=== PATIENT | male | born 1975 | race Caucasian/White ===

== ENCOUNTER 2018-02-11 06:12 | Inpatient (IN) ==
--- NOTE | 2018-02-10 22:09 | Discharge Summary ---
Orders not resulted at time of discharge: Pending orders 02/11/18 00:01 XR shoulder complete RT [XR] Routine H/H [Hemoglobin and Hematocrit] [HEME] Routine Date of Encounter: 02/13/18 Time of Encounter: 14:55 - Discharge Diagnosis (1) Status post reverse total arthroplasty of right shoulder Priority: Primary Status: Acute Comments: Opsite dressing, leave intact until first post-operative visit. Zipline in place, plan to remove at post-operative day #14-16. If dressing becomes >50% saturated, contact office, remove dressing and place appropriate dressing in its place. Do not allow for dressing to get wet. Shoulder Precautions x 6 weeks. Apply cold therapy wrap 3-6x/day for 20 minutes at a time. Encourage ambulation throughout the day. Use Incentive spirometer 10x/hour. Elevate affected extremity above heart as tolerated. NWB to affected upper extremity x 6 weeks. Will remove brace at first post-operative appointment. OK to remove during PT/OT and Home exercises. Remove ABD pillow at Postoperative day #1 (2) Rotator cuff arthropathy of right shoulder Priority: Primary Status: Acute (3) Factor V Leiden Priority: Secondary Status: Chronic (4) Chronic headaches Priority: Secondary Status: Chronic Qualifiers: Headache type: unspecified Intractability: not intractable Qualified Code(s): R51 - Headache (5) Syncopal episodes Priority: Secondary Status: Chronic Qualifiers: Syncope type: unspecified Qualified Code(s): R55 - Syncope and collapse - Hospital Course Hospital course: Mr. Hinds is a 42 year old male, Right TSR-r 02/11 A&O x 3 Afebrile, vital signs stable. Vital Signs Temp Pulse Resp BP Pulse Ox 02/13/18 07:03 98.7 F 58 14 130/82 96 02/13/18 03:26 98.5 F 58 16 156/90 95 02/13/18 01:38 98.9 F 61 16 152/84 96 02/12/18 23:29 99.1 F 115 15 146/82 93 02/12/18 19:17 98.9 F 66 15 153/80 93 Intake and Output 02/12/18 02/13/18 02/13/18 23:59 07:59 15:59 Intake Total 100 / 100 300 / 300 360 / 360 Output Total 400 / 400 Balance -300 / -300 300 / 300 360 / 360 Intake: IV Fluids 100 / 100 Ofirmev 1,000 mg/100 ml 1,000 100 / 100 mg In 100 ml @ 400 mls/hr IVPB ONCE ONE Rx#:[id number] Oral 300 / 300 360 / 360 Output: Urine 400 / 400 Other: Meal Breakfast Percent of Meal Consumed 100% Weight 126.2 kg Patient Weight 02/13/18 23:59 Weight 126.2 kg Labs reviewed. H/H - stable, asymptomatic Short CBC 02/13/18 Range/Units 05:35 Hgb 13.1 (12.9-16.9) g/dL Hct 38.8 (37.5-50.1) % BMP 02/13/18 Range/Units 05:35 Sodium 138 (136-145) mEq/L Potassium 3.8 (3.5-5.1) mEq/L Chloride 105 (98-107) mEq/L Carbon Dioxide 26 (23-29) mEq/L BUN 8 (6-20) mg/dL Creatinine 0.52 L (0.70-1.30) mg/dL Glucose 118 H (70-105) mg/dL Calcium 9.2 (8.6-10.3) mg/dL Pain control: adequate Flexeril added 10mg BID, Lido patch added. Started Tylenol w codeine for breakthrough Participating in PT. All questions and concerns addressed. Educated on use of incentive spirometer. Encouraged ambulation and proper hydration. Patient educated on post-operative restrictions and post-operative care. Assessment and plan: Continue with postoperative care Discharge plan: Home, discharge 02/13 with OP Flexeril 10mg BID sent - Time Spent with Patient Total time spent providing and/or coordinating discharge services: - Discharge Medications Home Medications: Divalproex Sodium [Depakote] 250 mg PO HS 02/11/18 [History] Flecainide 100 mg PO Q12HR 02/11/18 [History] Naratriptan HCl [Amerge] 2.5 mg PO DAILY PRN 02/11/18 [History] Prochlorperazine Maleate [Compazine] 10 mg PO Q8HR PRN 02/11/18 [History] Testosterone 2 pump TD DAILY 02/11/18 [History] Allergies/Adverse Reactions: Allergy/AdvReac Type Severity Reaction Status Date / Time acetaminophen [From Percocet] Allergy Anxiety Verified 02/11/18 15:58 fentanyl Allergy See Verified 02/11/18 15:58 Comments Oxycodone [From Percocet] Allergy Anxiety Verified 02/11/18 15:58 sumatriptan [From Imitrex] Allergy See Verified 02/11/18 15:58 Comments morphine AdvReac See Verified 02/11/18 07:25 Comments prednisone AdvReac Anxiety Verified 02/11/18 07:25 Date of admission: 02/11/18 Primary care physician: PCP NONE Anticipated date of discharge: 02/13/18 - Patient Status Disposition: Home, Self-Care Condition: Good Functional capacity at discharge: independent ambulation Overall status at discharge: patient is progressing back to baseline - Discharge Instructions Follow Up With: Lc Carrion MD [Partnered Physician] - 03/11/18 3:50 pm Alanis Blount PAC [Physician [employer] Former] - 02/19/18 8:45 am (ALSO, 02/27/17 @ 8:15AM) NONE,PCP [Primary Care Provider] - Additional Instructions: Discharge Instructions: Total Shoulder Please call [facility] ([phone]), your Primary Care Physician, or report to the Emergency Room if you have any of the following symptoms: Nausea, vomiting, fever greater that 101.5, swelling, chest pain, shortness of breath, increased pain/redness/drainage/odor for your incision site, numbness/tingling, or any other concerning symptoms. ACTIVITY: Always keep your arm in the sling. Do not raise your arm away from your body. Do not use your arm to help with getting in or out of bed. No we ight bearing permitted. Only perform those exercises given to you by your therapist. Incentive Spirometer 10 times an hour. MEDICATIONS: Upon discharge resume your home medications. Take all the medications as prescribed. Take a stool softener if taking narcotic pain medications. Stool softeners are only effective if you drink enough fluids. Drink 6-8 glass of water or fluids a day, unless this is not allowed for another health problem. Despite using stool softeners, if you haven't had a bowel movement in 3 days, please switch to a gentle laxative. Gentle laxatives are sold over the counter. You should have a bowel movement within 24 hours, if not call the office. You will be discharged from the hospital with a prescription for pain medication. You are encouraged to decrease the use of narcotic pain medication as tolerated. Should you require a refill, please call the office. [facility] prescribes narcotic pain medication for only 4-6 weeks after surgery. If you require pain medication beyond this time period, you may be referred to your Primary Care Physician or to the Pain Clinic for further evaluation. Plan ahead for refills on pain medication as many narcotics either need to be picked up at the office or mailed. It is best to call 48-72 hours in advance of needing a prescription refill so you don't run out of medication. To help control the post-operative pain, you may take NSAIDs (Aleve,Advil, Motrin, Ibuprofen, Naprosyn) or Tylenol as prescribed on the bottle in addition to the pain medication. WOUND CARE: Leave the dressing on for 7-10 days. You may change the dressing if it becomes saturated greater than 50%. Do not get the dressing wet at anytime. Wash your hands with antibacterial soap, rinse and dry prior to any wound care. If you have red the visiting nurse or rehab facility can remove the stapes 10-14 days after surgery and place steri-strips across the wound. Leave the steri-strips in place until they fall off on their own. You may let water from the shower run on top of the steri-strips. If you do not have a visiting nurse or rehab facility, you will need to return to the office at 10-14 days for the red to be removed. If you have itching or redness around the dressing call the office. FOLLOW-UP: Please follow up with your surgeon in the orthopedic clinic, as scheduled
[2018-02-11] MEDS ORDERED: Ringers Solution, Lactated 1,000 ML IVC SCH ×3 (06:30→09:45)
[2018-02-11] MEDS ORDERED: CeFAZolin Syr 3,000MG/30 ML 3,000 MG/30 ML SYRINGE IVPB ONE (06:30)
--- NOTE | 2018-02-11 06:54 | History & Physical Report ---
Date of Encounter: 02/11/18 Time of Encounter: 06:53 24 Hour HP Update - Instructions Instructions: If the History and Physical is less than 30 days old and was completed prior to A.M. admission and or procedure and has NOT been updated on calendar day of procedure please complete this update prior to performing procedure. - Update Patient reports changes in Medical Condition: No Changes in examination, assessment, or condition: No Changes in Medication: No Preop tests/diagnostics Reviewed: Yes Surgery Remains Indicated: Yes Consent for Planned Operative Procedure(s) Verified: Yes - Pre-Operative Checklist Preoperative Checklist Indicated: No Prophylactic Antibiotic Ordered: Yes Is VTE Prophylaxis Indicated?: Yes
[2018-02-11] MEDS ORDERED: LIDOCAINE 1% PF 2 ML AMPUL ONE (07:04)
[2018-02-11] MEDS ORDERED: Ethanol\\Acetic Acid\\Na Ace\\Ben 1,000 ML IRRIG.SOLN IR ONE (07:05)
--- NOTE | 2018-02-11 07:06 | Anesthesia Evaluation PreOp ---
Date of Encounter: 02/11/18 Time of Encounter: 07:04 - Past History Planned Operation: Right TSR, reverse ball and socket Cardiac History: Denies any Significant Hx Pulmonary History: Denies Any Significant HX DIET CONSULTANT History: Other (neurocardiogenic syncope) Other Medical History: Denies Any Significant HX, Other (factor V leiden) Anesthesia History: No Prior Anesthetic Complications, Past Anesthesia (L knee x2, multiple hand surgeries, ykleigh, T&A, L elbow ulnar nn decompressionRight RCR) Alcohol Use: none Drug use: none Medications and Allergies Flecainide 100 mg PO Q12HR 03/26/16 [History] Naratriptan HCl [Amerge] 2.5 mg PO BID PRN 03/26/16 [History] Rizatriptan Benzoate [Maxalt] 5 mg PO DAILY PRN 03/26/16 [History] Butalbital/Aspirin/Caffeine [Fiorinal 50-325-40 mg Capsule] 1 tab PO Q12H PRN 08/08/17 [History] Ketorolac Tromethamine 10 mg PO Q6H PRN 08/08/17 [History] Butler 5-325 mg 5 - 325 mg PO Q6-8H PRN 08/08/17 [History] Prochlorperazine Maleate 10 mg PO Q8H PRN 08/08/17 [History] Propranolol HCl 80 mg PO DAILY 08/08/17 [History] HYDROcodone/Acet 5/325 mg [Butler 5-325 mg] 1 tab PO Q6H PRN 7 Days #28 tab 02/10/18 [Rx] Allergy/AdvReac Type Severity Reaction Status Date / Time acetaminophen [From Percocet] Allergy Anxiety Unverified 01/23/18 22:57 fentanyl Allergy See Unverified 01/23/18 22:59 Comments Oxycodone [From Percocet] Allergy Anxiety Unverified 01/23/18 22:57 sumatriptan [From Imitrex] Allergy See Unverified 01/23/18 22:58 Comments morphine AdvReac See Verified 02/11/18 07:01 Comments prednisone AdvReac Anxiety Verified 03/26/16 12:23 - Meds/Allergy Pre-op Review Medications Reviewed: Yes Allergies Reviewed: Yes Beta Blockers on Current Med List: No Anesthesia Results - Labs Laboratory Tests 01/20/18 01/20/18 01/20/18 08:20 08:20 08:20 WBC 5.7 RBC 4.92 Hgb 15.4 Plt Count 213 PT 11.9 INR 1.1 APTT 42.0 H Sodium 139 Potassium 4.1 Chloride 108 H Carbon Dioxide 23 BUN 20 Creatinine 0.72 - Imaging EKG: report reviewed (SINUS BRADYCARDIA POSSIBLE RIGHT VENTRICULAR CONDUCTION DELAY [RSR (QR) IN V1/V2] MODERATE T-WAVE ABNORMALITY, CONSIDER ANTERIOR ISCHEMIA [-0.1+ mV T WAVE IN V3/V4] Electronically Signed On 08-11-2017 16:51:52 EDT by Minh Castillo) Anesthesia Exam O2 Sat Height 1.91 m Weight 125.645 kg O2 Sat by Pulse Oximetry 97 Vital Signs Temp Pulse Resp BP Pulse Ox 98.4 F 71 18 117/80 97 02/11/18 06:29 02/11/18 06:29 02/11/18 06:29 02/11/18 06:29 02/11/18 06:29 Weight: 125kg NPO (# of Hours): >8 Pain Scale: 0 Pain Scale Used: Numeric (1 - 10) - HEENT Pupil (Motor): Pupils equal, EOMI Mallampati: III Teeth: Missing Denture Type: Upper: Complete Oral Opening: Greater than 3 - DIET CONSULTANT LOC: Oriented DIET CONSULTANT Motor: Normal RUE, Normal LUE, Normal RLE, Normal LLE, Normal Face DIET CONSULTANT Sensory: Normal: RUE, LUE, RLE, LLE, Face - Cardiac Rhythm: Regular - Pulmonary Breath Sounds: bilateral Clear Respiratory Effort: Symmetrical Anesthesia Assess/Plan ASA Score: 2 Level of consciousness: Cooperative, Oriented Anesthetic Plan: General, Regional Nerve Block Regional Nerve Block Plan: Supraclavicular (Right) Monitoring Plan: Standard Monitors Recovery Plan: PACU
[2018-02-11] MEDS ORDERED: Ondansetron 4 MG/2 ML VIAL ONE (07:11)
[2018-02-11] MEDS ORDERED: Lidocaine -MPF 4% 5 ML AMPUL ONE (07:11)
[2018-02-11] MEDS ORDERED: *HR* Succinylcholine 200 MG/10 ML VIAL IVP ONE (07:11)
[2018-02-11] MEDS ORDERED: *HR* Propofol 200 MG/20 ML VIAL IVP ONE (07:11)
[2018-02-11] MEDS ORDERED: *HR* Midazolam HCl 2 MG/2 ML VIAL ONE (07:11)
[2018-02-11] MEDS ORDERED: Dexamethasone 4 MG/ML VIAL ONE (07:11)
[2018-02-11] MEDS ORDERED: *HR* FentaNYL (PF) 100 MCG/2 ML VIAL ONE (07:11)
[2018-02-11] MEDS ORDERED: Lidocaine -MPF 2% 2 ML VIAL ONE ×2 (07:11→07:14)
[2018-02-11] MEDS ORDERED: Tranexamic Acid 1,000 MG/10 ML VIAL ONE (07:15)
[2018-02-11] MEDS ORDERED: *HR* HYDROmorphone (PF) 1 MG/ML SYRINGE IVP PRN (07:17)
[2018-02-11] MEDS ORDERED: *HR* Meperidine 25 MG/ML SYRINGE IVP PRN (07:17)
[2018-02-11] MEDS ORDERED: Ondansetron 4 MG/2 ML VIAL IVP ONE (07:17)
[2018-02-11] MEDS ORDERED: *HR* Promethazine 25 MG/ML VIAL IVP PRN (07:17)
[2018-02-11] MEDS ORDERED: Bupivacaine/Clonidine Syringe 1 EACH SYRINGE ONE (07:20)
[2018-02-11] MEDS ORDERED: ROPIVACAINE HCL/PF 0.5% 30 ML VIAL ONE (07:20)
--- NOTE | 2018-02-11 07:59 | Anesthesia Procedures ---
Date of Encounter: 02/11/18 Time of Encounter: 07:35 Procedures: Anesthesia - Nerve Block Procedure Date: 02/11/18 Time: 07:35 Allergies/Adv Reactions: MULTIPLE SEE CHART Pre-op Diagnosis: RIGHT TOTAL SHOULDER ARTHRITIS Surgical Procedure: RIGHT TOTAL SHOULDER Checklist: Correct Patient Identifier, Correct procedure Correct side: Right Blood Thinner: No Monitor Applied: EKG, BP, Pulse Oximetry Supplemental Oxygen via Nasal Cannula (L/min): 2 Sedation: Versed (mg): 2 Sedation: Fentanyl (mcg): 100 (STATED FENTANYL DOESNT WORK -NOT TRUE ALLERGY ) Indication: Post Op Analgesia Pre-op Neuro Deficits: No (HAS NO DIGITS TO RIGHT SIDE ) Block Type: Supraclavicular (ICB/SCP) Catheter placed: No Sterile Technique: Yes Ultrasound used: Yes Anatomy identified: Yes Visual spread of Local: Yes Neuro Stimulation: Yes Nerve Stimulator Range: 0.2 - 0.4 mA Blood on Needle Aspiration: No Smooth Injection of Local: Yes Pain with Injection of Local: No Prep: Chlorhexadine Needle: 22 x 50 mm Stimuplex Local: 0.25% Bupivicaine w/Clonidine 20 mcg/cc (ICB/SCP), Ropivacaine (0.5% WITH 8MG DECADRON -SC BLOCK ) Volume (cc): 50 Number of Attempts: 1 Complications: None/effective block Vitals: Vital Signs - Last 8 Hours Temp Pulse Resp BP Pulse Ox 02/11/18 07:39 62 18 131/85 99 02/11/18 07:28 63 18 131/78 100 02/11/18 06:29 98.4 F 71 18 117/80 97 Intake and Output 02/10/18 02/11/18 02/11/18 23:59 07:59 15:59 Other: Weight 125.645 kg Patient Weight 02/11/18 23:59 Weight 125.645 kg
--- NOTE | 2018-02-11 08:44 | Orthopedic Operative Note ---
Date of procedure: 02/11/18 Pre-op diagnosis: Right shoulder cuff tear arthropathy Post-op diagnosis: same Procedure: Procedure: Total Shoulder Replacment Reverse, right Estimated blood loss: 50 cc Hardware: Metal and polyethylene replacement: Arthrex 28, +4 , 30 mm screw glenoid baseplate, 4 locking 5.5 screw, 42+4 glenosphere, 12 apex humeral stem, poly insert 6 Exam Under anesthesia: Full motion no instability Procedural Notes: The patient with a irreparable re-tear supraspinatus Operative procedure: The patient was brought to the operating room and placed on the operating room table. After general anesthesia was administered the operative shoulder was examined. Findings were noted. The patient was placed in the modified beachchair position. All pressure points were padded appropriately. And the head was stabilized in the neutral position. The operative extremity was prepped and draped in the sterile surgical fashion. The patient received IV antibiotics prior to skin incision. A standard deltopectoral approach was made to the operative shoulder. Incision was made to the skin and subcutaneous tissue,hemo stasis was obtained with Bovie cautery. Using careful blunt dissection the cephalic vein was identified and mobilized medially. The deltopectoral interval was developed and the clavipectoral fascia was incised. The subscap was released off the lesser tuberosity and tagged with #2 FiberWire suture subscap was irreparable. The humerus was dislocated patient noted to have irreparable re-tear supraspinatus tendon, and the humeral cut was made along the anatomic neck. Anterior and posterior Bankart retractors were placed to expose the glenoid. The glenoid guide was seated and the centering hole was made. It was reamed with the appropriate reamer. The 28, +4, 30 mm screw base plate was seated and secured with 4 locking 5.5 screw. The baseplate was irrigated and dried and the 42+4 Glenosphere was seated and secured with the Pemberton taper. The Pemberton taper was tested and found to be secure, glenosphere fixation was secondarily secured with the central screw. The humerus was redislocated and prepared with the diaphyseal reamers, followed by a broaching process up to the appropriate size of 12 apex in the patient's anatomic version. The metaphyseal reamer was then utilized. Trial reduction found the shoulder to be relocatable. Trial components were removed and the 12apex stem was impacted in place in the patient's anatomic version. Trial reduction found the shoulder to be relocatable and stable with the appropriate 6 Darshana Trial component was removed and the real implant was seated and secured the shoulder was reduced. The shoulder had excellent motion and excellent stability and no evidence of dislocation. The deep tissue was irrigated with pulse irrigation. The PA close the shoulder. The deltopectoral interval was closed with a running #1 PDS suture, subcutaneous tissue was irrigated and closed with 0 PDS suture, the skin was closed with Dermabond. The patient was placed in a sterile dressing, abduction brace and extubated. The patient was then transferred to the recovery room in stable condition. Anesthesia: GETA Surgeon: Lc Carrion Was there an assistant professor of english present: No Estimated blood loss (cc): 50 Condition: stable Disposition: PACU
[2018-02-11] MEDS ORDERED: *HR* Morphine 10 MG/ML VIAL ONE (08:46)
--- NOTE | 2018-02-11 09:39 | Anesthesia Evaluation Post Op ---
Date of Encounter: 02/11/18 Time of Encounter: 09:38 - Vital Signs Vital Signs: Vital Signs/O2 Sat, Most Current Temp Pulse Resp BP Pulse Ox 97.7 F 68 15 117/73 93 02/11/18 09:24 02/11/18 09:24 02/11/18 09:24 02/11/18 09:24 02/11/18 09:24 - Lungs Lungs: Clear Ascult./Percussion - Airway Airway: Non-obstructed - Cardiovascular Regular Rate - Mental Status Mental Status: Alert & Oriented, Answers Appropriately - Pain Pain Scale: 0 Pain Scale used: Numeric (1 - 10) - Nausea Vomiting Nausea Vomiting: Not Present - Hydration Hydration: Ice chips - Discharge PostOp Status: Transfer Patient to floor
[2018-02-11 09:44] LABS: Hematocrit 40.7 % (37.5-50.1); Hemoglobin 13.4 g/dL (12.9-16.9)
[2018-02-11] MEDS ORDERED: Sennosides 8.6 MG TABLET PO PRN (09:45)
[2018-02-11] MEDS ORDERED: Naratriptan Hcl [Amerge] 2.5 MG PO PRN (09:45)
[2018-02-11] MEDS ORDERED: Acetaminophen 325 MG TABLET PO PRN (09:45)
[2018-02-11] MEDS ORDERED: Naloxone 0.4 MG/ML INJ IVP PRN (09:45)
[2018-02-11] MEDS ORDERED: Ondansetron 4 MG/2 ML VIAL IVP PRN (09:45)
[2018-02-11] MEDS ORDERED: MOM Conc 10 ML UD.LIQ PO PRN (09:45)
[2018-02-11] MEDS ORDERED: Temazepam 15 MG CAPSULE PO PRN (09:45)
[2018-02-11] MEDS: *HR* HYDROcodone/Acet 5/325 mg TABLET PO PRN ×2 (11:05→16:12)
[2018-02-11] MEDS: TESTOSTERONE PUMP TP SCH (11:08)
[2018-02-11] MEDS: *HR* Enoxaparin 30 MG/0.3 ML SYRINGE SQ SCH (16:07)
[2018-02-11] MEDS: ceFAZolin 3,000 MG in 0.9 % Sodium Chloride 100 ML IVPB SCH (16:08)
[2018-02-11] MEDS ORDERED: *HR* Enoxaparin 30 MG/0.3 ML SYRINGE SQ SCH (18:00)
[2018-02-11] MEDS: Divalproex (12 HR) 250 MG TABLET PO SCH (20:23)
[2018-02-12] MEDS: ceFAZolin 3,000 MG in 0.9 % Sodium Chloride 100 ML IVPB SCH (00:03)
[2018-02-12 05:15] LABS: Hematocrit 37.5 % (37.5-50.1); Hemoglobin 12.6 g/dL (12.9-16.9)
[2018-02-12 05:28] LABS: BUN/Creatinine Ratio 20 (6-26); Blood Urea Nitrogen 12 mg/dL (6-20); Calcium 8.7 mg/dL (8.6-10.3); Carbon Dioxide 24 mEq/L (23-29); Chloride 106 mEq/L (98-107); Glucose 137 mg/dL (70-105); Osmolality,Calculated 284 (280-300); Potassium 3.8 mEq/L (3.5-5.1); Sodium 136 mEq/L (136-145); eGFR For Non-African Americans > 60 (> 60)
--- NOTE | 2018-02-12 06:47 | Orthopedics Progress Note ---
Date of Encounter: 02/12/18 Time of Encounter: 06:47 Subjective Interval history: Patient was seen this morning doing well without complaints. Afebrile vital signs stable. Operative extremity: Neurovascularly intact Dressing clean dry and intact Calves nontender Assessment and plan: Continue with postoperative care Discharged today Objective Vital signs: Vital Signs Temp Pulse Resp BP Pulse Ox 02/12/18 04:17 97.9 F 67 16 111/65 95 02/12/18 01:31 97.9 F 66 16 107/64 95 02/11/18 20:21 97.9 F 57 14 105/61 94 02/11/18 14:22 98.8 F 78 16 126/68 96 02/11/18 13:24 71 16 107/57 95 02/11/18 12:31 97.7 F 70 16 111/65 02/11/18 11:16 69 15 129/88 96 02/11/18 10:45 67 14 111/68 93 02/11/18 10:15 97.9 F 70 14 114/72 94 02/11/18 09:45 97.9 F 68 14 117/71 94 02/11/18 09:34 97.7 F 66 16 117/74 93 02/11/18 09:24 97.7 F 68 15 117/73 93 02/11/18 09:14 80 16 127/85 94 02/11/18 09:04 80 16 135/85 96 02/11/18 08:54 98.0 F 56 16 98/59 96 02/11/18 07:39 62 18 131/85 99 02/11/18 07:28 63 18 131/78 100 Intake and Output 02/11/18 02/11/18 02/12/18 15:59 23:59 07:59 Intake Total 150 / 150 100 / 100 Output Total 950 / 950 0 / 0 Balance -950 / -950 150 / 150 100 / 100 Intake: IV Fluids 100 / 100 Ancef 3,000 MG In 0.9 % Sodium 100 / 100 Chloride 100 ML @ 200 mls/hr IVPB Q8HR [facility] Rx#:[id number] Oral 50 / 50 100 / 100 Output: Urine 900 / 900 0 / 0 Estimated Blood Loss 50 / 50 Other: # Voids 1 1 Weight 125.9 kg Patient Weight 02/12/18 23:59 Weight 125.9 kg - Labs CBC & BMP: 02/12/18 04:33 02/12/18 04:33 Labs: Abnormal lab results Hgb 12.6 g/dL (12.9-16.9) L 02/12/18 04:33 Creatinine 0.61 mg/dL (0.70-1.30) L 02/12/18 04:33 Glucose 137 mg/dL (70-105) H 02/12/18 04:33 - VTE Documentation of Mechanical Device: Venous foot pump, device Consult Discharge Plan - Plan Referrals: NONE,PCP [Primary Care Provider] -
[2018-02-12] MEDS: *HR* Enoxaparin 30 MG/0.3 ML SYRINGE SQ SCH ×2 (06:58→16:44)
[2018-02-12] MEDS: TESTOSTERONE PUMP TP SCH (08:45)
[2018-02-12] MEDS: *HR* HYDROcodone/Acet 5/325 mg TABLET PO PRN ×2 (08:49→16:54)
[2018-02-12] MEDS: *HR* HYDROcodone/Acet 10/325 mg TABLET PO PRN ×2 (12:23→22:17)
[2018-02-12] MEDS ORDERED: Acetaminophen IV 1,000 MG/100 ML INFUS..BTL IVPB ONE (15:39)
--- NOTE | 2018-02-12 16:51 | Event Note ---
Date of Encounter: 02/12/18 Time of Encounter: 16:50 PCR - POD# Right TSR-r 02/11 Patient seen at bedside, without complaints. A&O x 3 Afebrile, vital signs stable. Labs reviewed. H/H - stable, asymptomatic Pain control: adequate Flexeril added 10mg BID, Lido patch added. Started Tylenol w codeine for breakthrough Participating in PT. All questions and concerns addressed. Educated on use of incentive spirometer. Encouraged ambulation and proper hydration. Patient educated on post-operative restrictions and post-operative care. Assessment and plan: Continue with postoperative care Discharge plan: Home, discharge 02/13 with OP
[2018-02-12] MEDS ORDERED: *HR* Acetaminophen w/Cod 300-30 mg 1 TAB TABLET PO PRN (17:26)
[2018-02-12] MEDS: Divalproex (12 HR) 250 MG TABLET PO SCH (22:17)
[2018-02-13] MEDS: *HR* HYDROcodone/Acet 10/325 mg TABLET PO PRN ×2 (04:15→10:30)
[2018-02-13 06:01] LABS: Hematocrit 38.8 % (37.5-50.1); Hemoglobin 13.1 g/dL (12.9-16.9)
[2018-02-13 06:22] LABS: BUN/Creatinine Ratio 15 (6-26); Blood Urea Nitrogen 8 mg/dL (6-20); Calcium 9.2 mg/dL (8.6-10.3); Carbon Dioxide 26 mEq/L (23-29); Chloride 105 mEq/L (98-107); Glucose 118 mg/dL (70-105); Osmolality,Calculated 285 (280-300); Potassium 3.8 mEq/L (3.5-5.1); Sodium 138 mEq/L (136-145); eGFR For Non-African Americans > 60 (> 60)
[2018-02-13] MEDS: *HR* Enoxaparin 30 MG/0.3 ML SYRINGE SQ SCH (06:37)
--- NOTE | 2018-02-13 06:47 | Orthopedics Progress Note ---
Date of Encounter: 02/13/18 Time of Encounter: 06:46 Subjective Interval history: Patient was seen this morning doing well without complaints. Afebrile vital signs stable. Operative extremity: Neurovascularly intact Dressing clean dry and intact Calves nontender Assessment and plan: Continue with postoperative care Plan for discharge today Objective Vital signs: Vital Signs Temp Pulse Resp BP Pulse Ox 02/13/18 03:26 98.5 F 58 16 156/90 95 02/13/18 01:38 98.9 F 61 16 152/84 96 02/12/18 23:29 99.1 F 115 15 146/82 93 02/12/18 19:17 98.9 F 66 15 153/80 93 02/12/18 14:58 99.0 F 85 18 142/82 95 02/12/18 11:05 98.8 F 63 18 146/82 96 02/12/18 06:55 97.4 F L 59 18 123/77 96 Intake and Output 02/12/18 02/12/18 02/13/18 15:59 23:59 07:59 Intake Total 1430 / 1430 100 / 100 Output Total 400 / 400 Balance 1430 / 1430 -300 / -300 Intake: IV Fluids 1130 / 1130 100 / 100 Ofirmev 1,000 mg/100 ml 1,000 100 / 100 mg In 100 ml @ 400 mls/hr IVPB ONCE ONE Rx#:[id number] Ancef 3,000 MG In 0.9 % Sodium 100 / 100 Chloride 100 ML @ 200 mls/hr IVPB Q8HR SHAYNE Rx#:[id number] Oral 300 / 300 Output: Urine 400 / 400 Other: Meal Breakfast Percent of Meal Consumed 75% # Voids 8 Weight 126.2 kg Patient Weight 02/13/18 23:59 Weight 126.2 kg - Labs CBC & BMP: 02/13/18 05:35 02/13/18 05:35 Labs: Abnormal lab results Creatinine 0.52 mg/dL (0.70-1.30) L 02/13/18 05:35 Glucose 118 mg/dL (70-105) H 02/13/18 05:35 - VTE Documentation of Mechanical Device: Venous foot pump, device Consult Discharge Plan - Plan Additional Instructions: Discharge Instructions: Total Shoulder Please call [facility] ([phone]), your Primary Care Physician, or report to the Emergency Room if you have any of the following symptoms: Nausea, vomiting, fever greater that 101.5, swelling, chest pain, shortness of breath, increased pain/redness/drainage/odor for your incision site, numbness/tingling, or any other concerning symptoms. ACTIVITY: Always keep your arm in the sling. Do not raise your arm away from your body. Do not use your arm to help with getting in or out of bed. No weight bearing permitted. Only perform those exercises given to you by your therapist. Incentive Spirometer 10 times an hour. MEDICATIONS: Upon discharge resume your home medications. Take all the medications as prescribed. Take a stool softener if taking narcotic pain medications. Stool softeners are only effective if you drink enough fluids. Drink 6-8 glass of water or fluids a day, unless this is not allowed for another health problem. Despite using stool softeners, if you haven't had a bowel movement in 3 days, please switch to a gentle laxative. Gentle laxatives are sold over the counter. You should have a bowel movement within 24 hours, if not call the office. You will be discharged from the hospital with a prescription for pain medication. You are encouraged to decrease the use of narcotic pain medication as tolerated. Should you require a refill, please call the office. [facility] prescribes narcotic pain medication for only 4-6 weeks after surgery. If you require pain medication beyond this time period, you may be referred to your Primary Care Physician or to the Pain Clinic for further evaluation. Plan ahead for refills on pain medication as many narcotics either need to be picked up at the office or mailed. It is best to call 48-72 hours in advance of needing a prescription refill so you don't run out of medication. To help control the post-operative pain, you may take NSAIDs (Aleve,Advil, Motrin, Ibuprofen, Naprosyn) or Tylenol as prescribed on the bottle in addition to the pain medication. WOUND CARE: Leave the dressing on for 7-10 days. You may change the dressing if it becomes saturated greater than 50%. Do not get the dressing wet at anytime. Wash your hands with antibacterial soap, rinse and dry prior to any wound care. If you have red the visiting nurse or rehab facility can remove the stapes 10-14 days after surgery and place steri-strips across the wound. Leave the steri-strips in place until they fall off on their own. You may let water from the shower run on top of the steri-strips. If you do not have a visiting nurse or rehab facility, you will need to return to the office at 10-14 days for the red to be removed. If you have itching or redness around the dressing call the office. FOLLOW-UP: Please follow up with your surgeon in the orthopedic clinic, as scheduled Referrals: Lc Carrion MD [Partnered Physician] - 03/11/18 3:50 pm Alanis Blount PAC [Physician Customer Service Trainer] - 02/19/18 8:45 am (ALSO, 02/27/17 @ 8:15AM) NONE,PCP [Primary Care Provider] -
[2018-02-13 07:04] VITALS: BP 130/82
== END 2018-02-13 10:50 | disposition home or self-care (01) | DRG 322 ==
LOC: SAMDAY 06:12 → 3NENU 09:47
PROVIDERS: ADMIT Orthopaedic Surgery; ATTEND Orthopaedic Surgery